=== PATIENT | male | born 1985 | race Caucasian/White ===

== ENCOUNTER 2022-05-21 01:07 | Emergency (ER) | payer OTHER ==
[2022-05-21] MEDS ORDERED: ASPIRIN 81 MG CHEWABLE TABLET ONE (01:33)
[2022-05-21] MEDS ORDERED: PANTOPRAZOLE 40 MG INJ ONE (01:34)
[2022-05-21] MEDS ORDERED: NA CHLORIDE 0.9% 500 ML ONE (01:34)
[2022-05-21] MEDS ORDERED: LORAZEPAM 1 MG TABLET ONE (01:34)
[2022-05-21 02:03] LABS: Absolute Lymphocytes (CBC) 4.4 K/uL (0.7-4.9); Lymphocytes % 39.9 % (15.3-44.8); MCV 89.9 fL (80-100); MPV 7.9 fL (7.6-11.3); RBC Red Blood Cell Count 5.01 M/uL (4.33-5.43)
[2022-05-21 02:22] LABS: Albumin 3.7 g/dL (3.4-5.0); Bilirubin Direct 0.2 mg/dL (0-0.2); Bilirubin Total 0.5 mg/dL (0.2-1.0); Magnesium 1.8 mg/dL (1.6-2.4); Potassium 3.5 mmol/L (3.5-5.1); Protein, Total 7.2 g/dL (6.4-8.2); Thyroid Stimulating Hormone 2.81 uIU/mL (0.358-3.740); Troponin High Sensitivity 5.1 pg/mL (<58.9)
--- NOTE | 2022-05-21 03:11 | EDPHYS ---
Physician Documentation [facility] Name: Juan Cantor Age: 36 yrs Sex: Male : 1985 Arrival Date: 05/21/2022 Time: 01:08 Bed 7 Private MD: ED Physician Willy Cabrera HPI: 05/21 01:23 This 36 yrs old Male presents to ER via Unassigned with complaints of Breathing snw Difficulty, Palpitations, Anxiety. 01:23 The patient has shortness of breath at rest. Onset: The symptoms/episode began/occurred snw suddenly. Duration: The symptoms are continuous. Associated signs and symptoms: Pertinent positives: chest pain, SOB, Pertinent negatives: diaphoresis. Severity of symptoms: At their worst the symptoms were severe in the emergency department the symptoms are unchanged. The patient has experienced similar episodes in the past, several times. seeing Dr. Logan, Placed on Carvedilol BID. Historical: - Allergies: 01:41 No Known Allergies; as6 - PMHx: 01:41 Hypertensive disorder; as6 - Immunization history:: Adult Immunizations unknown. - Social history:: Smoking status: unknown. ROS: 01:22 Eyes: Negative for injury, pain, redness, and discharge, ENT: Negative for injury, snw pain, and discharge, Neck: Negative for injury, pain, and swelling. 01:22 Abdomen/GI: Negative for abdominal pain, nausea, vomiting, diarrhea, and constipation, Back: Negative for injury and pain, : Negative for injury, bleeding, discharge, and swelling, MS/Extremity: Negative for injury and deformity, Skin: Negative for injury, rash, and discoloration. 01:22 Constitutional: Positive for "episodes of not breathing good". 01:22 Cardiovascular: Positive for chest pain, of the chest. 01:22 Respiratory: Positive for shortness of breath, at rest. 01:22 Neuro: Positive for tingling, of the right hand and left hand. 01:22 Psych: Positive for anxiety. Exam: 01:20 Head/Face: Normocephalic, atraumatic. Eyes: Pupils equal round and reactive to light, snw extra-ocular motions intact. Lids and lashes normal. Conjunctiva and sclera are non-icteric and not injected. Cornea within normal limits. Periorbital areas with no swelling, redness, or edema. ENT: Nares patent. No nasal discharge, no septal abnormalities noted. Tympanic membranes are normal and external auditory canals are clear. Oropharynx with no redness, swelling, or masses, exudates, or evidence of obstruction, uvula midline. Mucous membranes moist. Chest/axilla: Normal chest wall appearance and motion. Nontender with no deformity. No lesions are appreciated. 01:20 Abdomen/GI: Soft, non-tender, with normal bowel sounds. No distension or tympany. No guarding or rebound. No evidence of tenderness throughout. Back: No spinal tenderness. No costovertebral tenderness. Full range of motion. Skin: Warm, dry with normal turgor. Normal color with no rashes, no lesions, and no evidence of cellulitis. MS/ Extremity: Pulses equal, no cyanosis. Neurovascular intact. Full, normal range of motion. Neuro: Awake and alert, GCS 15, oriented to person, place, time, and situation. Cranial nerves II-XII grossly intact. Motor strength 5/5 in all extremities. Sensory grossly intact. Cerebellar exam normal. Normal gait. 01:20 Constitutional: The patient appears alert, awake, anxious, restless, hyperventilating 01:20 Cardiovascular: Rate: tachycardic, Pulses: no pulse deficits are appreciated, Heart sounds: normal. 01:20 Respiratory: the patient does not display signs of respiratory distress, Respirations: shallow respirations, tachypnea, that is moderate, Breath sounds: are clear throughout. 01:20 Psych: Behavior/mood is anxious, Affect is animated, Oriented to person, place, time. 02:32 Psych: pt continues to be exceedingly anxious. snw Vital Signs: 01:19 BP 144 / 111; Pulse 101; Resp 28; Pulse Ox 100% ; Weight 124.74 kg; Height 5 ft. 9 in. snw (175.26 cm); Pain 5/10; 01:42 BP 114 / 99; Pulse 91; Resp 19 S; Temp 98.2(O); Pulse Ox 100% on R/A; as6 02:52 BP 126 / 74; Pulse 85; Resp 19 S; Pulse Ox 95% on R/A; as6 01:19 Body Mass Index 40.61 (124.74 kg, 175.26 cm) snw MDM: 01:24 Patient medically screened. snw 03:07 Differential diagnosis: Anxiety Reaction asthma, Bronchitis Chronic Obstructive snw Pulmonary Disease Myocardial Infarction Pulmonary Embolism Unstable Angina. Data interpreted: Pulse oximetry: on room air is 100 %. Interpretation: normal. Data reviewed: vital signs, nurses notes, lab test result(s), EKG, radiologic studies. Historians other than the Patient: Spouse/Significant Other: . Counseling: I had a detailed discussion with the patient and/or guardian regarding: the historical points, exam findings, and any diagnostic results supporting the discharge/admit diagnosis, the presence of at least one elevated blood pressure reading (>120/80) during this emergency department visit, lab results, radiology results, the need for outpatient follow up, for definitive care, to return to the emergency department if symptoms worsen or persist or if there are any questions or concerns that arise at home. Special discussion: Based on the patient's history, exam, and Dx evaluation, there is no indication for emergent intervention or inpatient Tx. It is understood by the patient/guardian that if the Sx's persist or worsen they need to return immediately for re-evaluation. I have referred the patient to see his PCP for further evaluation of high blood pressure. Based on the history and exam findings, there is no indication for further emergent testing or inpatient evaluation. I discussed with the patient/guardian the need to see the dramatic critic for further evaluation of the symptoms. I discussed with the patient/guardian the need to see the primary care provider for further evaluation of the symptoms. I discussed with the patient/guardian the need to see the substitute bus driver for further evaluation of the symptoms. 05/21 01:19 Order name: Basic Metabolic Panel formerly [facility] 05/21 01:19 Order name: CBC with Diff 05/21 01:19 Order name: LFT's formerly [facility] 05/21 01:19 Order name: Magnesium formerly [facility] 05/21 01:19 Order name: NT PRO-BNP formerly [facility] 05/21 01:19 Order name: PT-INR formerly [facility] 05/21 01:19 Order name: Troponin HS formerly [facility] 05/21 01:24 Order name: TSH formerly [facility] 05/21 02:02 Order name: Protime (+INR); Complete Time: 02:11 EDMS 05/21 02:06 Order name: CBC with Automated Diff; Complete Time: 02:11 EDMS 05/21 02:22 Order name: Basic Metabolic Panel; Complete Time: 02:22 EDMS 05/21 02:22 Order name: Liver (Hepatic) Function; Complete Time: 02:22 EDMS 05/21 02:22 Order name: Troponin High Sensitivity; Complete Time: 02:22 EDMS 05/21 02:22 Order name: NT PRO-BNP; Complete Time: 02:22 EDMS 05/21 01:19 Order name: XRAY Chest (1 view) snw 05/21 01:19 Order name: EKG; Complete Time: 01:20 snw 05/21 01:19 Order name: Cardiac monitoring; Complete Time: 01:40 snw 05/21 01:19 Order name: EKG - Nurse/Tech; Complete Time: 01:41 snw 05/21 01:19 Order name: IV Saline Lock; Complete Time: 01:33 snw 05/21 01:19 Order name: Labs collected and sent; Complete Time: 01:33 snw 05/21 01:19 Order name: O2 Per Protocol; Complete Time: 01:45 snw 05/21 01:19 Order name: O2 Sat Monitoring; Complete Time: 01:45 snw 05/21 02:22 Order name: Magnesium; Complete Time: 02:22 EDMS 05/21 02:22 Order name: Thyroid Stimulating Hormone; Complete Time: 02:22 EDMS 05/21 02:23 Order name: US Abdomen Limited snw Administered Medications: 01:35 Drug: Aspirin Chewable Tablet 324 mg Route: PO; as6 03:14 Follow up: Response: No adverse reaction as6 01:35 Drug: Ativan (LORazepam) 2 mg Route: PO; as6 03:14 Follow up: Response: No adverse reaction as6 01:35 Drug: ProTONIX (pantoprazole) 40 mg Route: IVP; Site: right antecubital; as6 03:15 Follow up: Response: No adverse reaction as6 01:35 Drug: NS 0.9% 500 ml Route: IV; Rate: bolus; Site: right antecubital; as6 03:15 Follow up: Response: No adverse reaction; IV Status: Completed infusion; IV Intake: as6 500ml Disposition: 05:21 Co-signature as Attending Physician, Willy Cabrera MD I reviewed the patient's care rt provided by the Advanced Practice Provider and agree with the diagnosis and treatment plan. Disposition Summary: 05/21/22 03:10 Discharge Ordered Location: Home snw Condition: Stable snw Diagnosis - Gastro-esophageal reflux disease without esophagitis snw - Chest pain, unspecified snw Followup: snw - With: Emergency Department - When: As needed - Reason: Worsening of condition Followup: snw - With: Private Physician - When: 2 - 3 days - Reason: Recheck today's complaints, Continuance of care, Re-evaluation by your physician Followup: snw - With: Sammy Turner MD - When: 1 week - Reason: Trouble breathing, Recheck today's complaints, Continuance of care, Sleep study Discharge Instructions: - Discharge Summary Sheet snw - Nonspecific Chest Pain, Adult snw - Food Choices for Gastroesophageal Reflux Disease, Adult snw - Gastroesophageal Reflux Disease, Adult snw - Sleep Apnea snw - Sleep Studies snw - How to Take Your Blood Pressure, [id number] snw - Form - Blood Pressure Record Sheet snw - Living With Sleep Apnea snw Forms: - Medication Reconciliation Form snw - Thank You Letter snw - Antibiotic Education snw - Prescription Opioid Use snw Prescriptions: - Protonix 40 mg Oral tablet,delayed release (DR/EC) - take 1 tablet by ORAL route every 12 hours; 60 tablet; Refills: 0, Product snw Selection Permitted Signatures: Dispatcher [employer] Luh Hammond, CAN SOLDERER-C CAN SOLDERER-Taniaw Luisito Sanon, RN RN as6 Willy Cabrera MD MD rt
--- NOTE | 2022-05-21 03:11 | ER ---
Nurse's Notes [facility] Name: Juan Cantor Age: 36 yrs Sex: Male : 1985 Arrival Date: 05/21/2022 Time: 01:08 Bed 7 Private MD: Diagnosis: Gastro-esophageal reflux disease without esophagitis;Chest pain, unspecified Presentation: 05/21 01:42 Chief complaint: Patient states: woke up in the night with chest pain and shortness of as6 breath. Coronavirus screen: At this time, the client does not indicate any symptoms associated with coronavirus-19. Ebola Screen: No symptoms or risks identified at this time. Initial Sepsis Screen: Does the patient meet any 2 criteria? No. Patient's initial sepsis screen is negative. Does the patient have a suspected source of infection? No. Patient's initial sepsis screen is negative. Risk Assessment: Do you want to hurt yourself or someone else? Patient reports no desire to harm self or others. Onset of symptoms was May 21, 2022. 01:42 Acuity: UYE 3 as6 01:42 Method Of Arrival: Ambulatory as6 Triage Assessment: 03:14 Respiratory: Reports. as6 Historical: - Allergies: 01:41 No Known Allergies; as6 - PMHx: 01:41 Hypertensive disorder; as6 - Immunization history:: Adult Immunizations unknown. - Social history:: Smoking status: unknown. Screenin:44 [facility] ED Fall Risk Assessment (Adult) Score/Fall Risk Level 0 - 2 = Low Risk. Abuse as6 screen: Denies threats or abuse. Denies injuries from another. Nutritional screening: No deficits noted. Tuberculosis screening: No symptoms or risk factors identified. Assessment: 01:43 General: Appears obese, Behavior is cooperative, anxious. Pain: Complains of pain in as6 chest. Cardiovascular: Reports chest pain, shortness of breath, Rhythm is sinus rhythm. Respiratory: Airway is patent Respiratory effort is even, unlabored, Breath sounds are clear. 02:55 General: "my breathing is a little better". as6 Vital Signs: 01:19 BP 144 / 111; Pulse 101; Resp 28; Pulse Ox 100% ; Weight 124.74 kg; Height 5 ft. 9 in. snw (175.26 cm); Pain 5/10; 01:42 BP 114 / 99; Pulse 91; Resp 19 S; Temp 98.2(O); Pulse Ox 100% on R/A; as6 02:52 BP 126 / 74; Pulse 85; Resp 19 S; Pulse Ox 95% on R/A; as6 01:19 Body Mass Index 40.61 (124.74 kg, 175.26 cm) sn ED Course: 01:08 Patient arrived in ED. ja2 01:18 Luh Armstrong [facility]-C [facility] snw 01:18 Willy Cabrera MD is Attending Physician. snw 01:24 Luisito Sanon, ANN-MARIE is Primary Nurse. as6 01:33 Initial lab(s) drawn, by me, sent to lab. Inserted saline lock: 20 gauge in right ll3 antecubital area, using aseptic technique. Blood collected. 01:41 Arm band placed on. as6 01:43 Triage completed. as6 01:44 Bed in low position. Call light in reach. Side rails up X 1. Client placed on as6 continuous cardiac and pulse oximetry monitoring. NIBP monitoring applied. 03:09 Sammy Turner MD is Referral Physician. snw 03:14 No provider procedures requiring assistance completed. as6 03:26 IV discontinued, intact, bleeding controlled, No redness/swelling at site. Pressure as6 dressing applied. Administered Medications: 01:35 Drug: Aspirin Chewable Tablet 324 mg Route: PO; as6 03:14 Follow up: Response: No adverse reaction as6 01:35 Drug: Ativan (LORazepam) 2 mg Route: PO; as6 03:14 Follow up: Response: No adverse reaction as6 01:35 Drug: ProTONIX (pantoprazole) 40 mg Route: IVP; Site: right antecubital; as6 03:15 Follow up: Response: No adverse reaction as6 01:35 Drug: NS 0.9% 500 ml Route: IV; Rate: bolus; Site: right antecubital; as6 03:15 Follow up: Response: No adverse reaction; IV Status: Completed infusion; IV Intake: as6 500ml Medication: 01:44 VIS not applicable for this client. as6 Intake: 03:15 IV: 500ml; Total: 500ml. as6 Outcome: 03:10 Discharge ordered by . snw 03:14 Discharged to home ambulatory, with family. as6 03:14 Condition: stable 03:26 Discharge instructions given to patient, Instructed on discharge instructions, follow as6 up and referral plans. medication usage, Demonstrated understanding of instructions, follow-up care, medications, Prescriptions given X 1. 03:26 Patient left the ED. as6 Signatures: Luh Armstrong, INDEPENDENT CONSULTANT-C INDEPENDENT CONSULTANT-Csnw Rhina Laws ja2 Luisito Sanon RN RN as6 Moses Lyles RN RN ll3
[2022-05-21 04:35] VITALS: TEMP 98.2
[2022-05-21 04:36] VITALS: BP 126/74; O2SAT 95
--- NOTE | 2022-05-21 16:18 | EKG ---
Test Date: 2022-05-21 Test Time: 01:37:56 Asset Coordinator: VINOD MEASUREMENT RESULTS: Intervals: Rate: 92 OR: 144 QRSD: 98 QT: 356 QTc: 440 [place]: P: 69 OR: 144 QRS: 62 T: 59 INTERPRETIVE STATEMENTS: Normal sinus rhythm Normal ECG No previous ECG available for comparison Electronically Signed On 05-21-22 16:16:41 ECOLOGICAL TECHNICAL OFFICER by Antoni Plunkett
--- NOTE | 2022-05-21 16:30 | RAD REPORT ---
EXAM DESCRIPTION: US Abdomen Limited, Gallbladder CLINICAL HISTORY: The patient is 36 years old and is Male; chest pain TECHNIQUE: Real-time ultrasound of the right upper quadrant with image documentation. COMPARISON: No relevant prior studies available. FINDINGS: GALLBLADDER: Gallbladder is contracted. No gallstones are seen. There is a negative sono graphic Pena's sign. COMMON BILE DUCT: Unremarkable as visualized. No stones. No dilation. IMPRESSION: Contracted gallbladder. No evidence to suggest cholecystitis. Electronically signed by: Anabel Huerta MD 05/21/2022 3:02 AM AUTOMOTIVE GLASS SPECIALIST Due to temporary technical issues with the PACS/Fluency reporting system, reports are being signed by the in house radiologists without review as a courtesy to insure prompt reporting. The interpreting radiologist is fully responsible for the content of the report.
--- NOTE | 2022-05-21 16:39 | RAD REPORT ---
EXAM DESCRIPTION: Chest Single View CLINICAL HISTORY: 36 years Male, CHEST PAIN COMPARISON: None FINDINGS: No focal lung consolidation. No pleural effusion. No pneumothorax. Cardiomediastinal silhouette is within normal limits. No acute osseous abnormality. IMPRESSION: No acute cardiopulmonary disease. Electronically signed by: Jonathan Hart DO 05/21/2022 1:37 AM MACHINE VENEER REPAIRER Due to temporary technical issues with the PACS/Fluency reporting system, reports are being signed by the in house radiologists without review as a courtesy to insure prompt reporting. The interpreting radiologist is fully responsible for the content of the report.
== END 2022-05-21 03:26 | disposition home or self-care (01) ==
LOC: ER 01:07
DX: K21.9 Gastro-esophageal reflux disease without esophagitis (principal); R06.02 Shortness of breath
CPT/HCPCS: 93005; 85025; 80048; 36415; 83735; 85610; 80076; 84443; 84484; 83880; 71045; 76705; C9113; J7040

== ENCOUNTER 2025-01-08 12:38 | Emergency (ER) | payer OTHER ==
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
[2025-01-08 15:03] VITALS: BP 144/78; TEMP 98.5; O2SAT 100
== END 2025-01-08 14:25 | disposition home or self-care (01) ==
LOC: ER 12:38
DX: R07.1 Chest pain on breathing (principal); V49.50XA Passenger injured in collision with unspecified motor vehicles in traffic accident, initial encounter; F17.210 Nicotine dependence, cigarettes, uncomplicated
CPT/HCPCS: 71045; 99282